=== PATIENT | female | born 1985 | race Caucasian/White ===

== ENCOUNTER 2019-01-21 17:00 | Emergency (ER) | payer MEDICAID ==
[~2019-01-21] VITALS: Ht 172.7 cm; Wt 68.0 kg
[~2019-01-21 17:00] MED LIST: ACEASPCAF; DOCU100; HYDACE5 PO; IBUP800; IBUP800 PO; KARIVA; MULVITMINE PO; NAPR500; NUVA RING; OXYACE5T; OXYACE5T PO; PENVK500 PO; PRENATAL TABLE1 EAC1 PO; PROACE100 PO; RXOXYACE PO; RXPROACE PO; SUMA25 PO
== END 2019-01-21 17:35 | disposition home or self-care (01) ==
LOC: ER 17:00
DX: S00.412A Abrasion of left ear, initial encounter (principal); W22.8XXA Striking against or struck by other objects, initial encounter
CPT/HCPCS: 99282

== ENCOUNTER 2019-07-13 15:07 | Emergency (ER) | payer OTHER ==
[~2019-07-13] VITALS: Ht 172.7 cm; Wt 63.5 kg
[2019-07-13 15:54] LABS: BASOPHILS ABSOLUTE AUTO 0.05 K/mm3 (0.00-0.23); BASOPHILS PERCENT AUTO 1 % (0-2); EOSINOPHILS ABSOLUTE AUTO 0.08 K/mm3 (0.00-0.68); EOSINOPHILS PERCENT AUTO 2 % (0-6); Hemoglobin 11.2 g/dL (11.5-16.0); IMMATURE GRAN ABSOLUTE AUTO 0.01 K/mm3 (0.00-0.10); IMMATURE GRAN PERCENT AUTO 0 % (0-1); LYMPHOCYTES ABSOLUTE AUTO 2.12 K/mm3 (0.84-5.20); LYMPHOCYTES PERCENT AUTO 40 % (21-46); MONOCYTES ABSOLUTE AUTO 0.41 K/mm3 (0.16-1.47); MONOCYTES PERCENT AUTO 8 % (4-13); Mean Corpuscular HGB 23.7 pg (26.0-34.0); Mean Corpuscular HGB Conc 31.1 g/dL (31.5-36.5); Mean Corpuscular Volume 76 fL (80-100); Mean Platelet Volume 8.5 fL (9.1-12.4); NEUTROPHILS ABSOLUTE AUTO 2.62 K/mm3 (1.96-9.15); NEUTROPHILS PERCENT AUTO 50 % (41-73); Platelet Count 299 K/mm3 (150-400); RDW Coefficient Variation 18.4 % (11.7-14.2); RDW Standard Deviation 50.4 fL (35.1-46.3); Red Blood Cell Count 4.72 M/mm3 (3.80-5.20); White Blood Cell Count 5.29 K/mm3 (4.00-11.30)
[2019-07-13 16:18] LABS: Alanine Aminotransfer (ALT/SGP 19 U/L (12-78); Albumin, Blood 3.4 g/dL (3.4-5.0); Albumin/Globulin Ratio 1.1 (0.8-1.8); Alk Phos 42 U/L (50-136); Anion Gap 1 mmol/L (6-16); Aspartate Aminotrans (AST/SGOT 22 U/L (12-37); Bilirubin, Total 0.8 mg/dL (0.1-1.0); Blood Urea Nitrogen 14 mg/dL (8-24); Bun/Creatinine Ratio 23.3 (12.0-20.0); CO2, Blood 28 mmol/L (21-32); Calcium, Blood 8.6 mg/dL (8.5-10.1); Chloride, Blood 112 mmol/L (98-108); Globulin, Blood 3.2 g/dL (2.2-4.0); Glomerular Filtration Rate >60 (60-); Glucose, Blood 94 mg/dL (70-99); Potassium, Blood 3.9 mmol/L (3.5-5.5); Sodium, Blood 141 mmol/L (136-145); Total Protein, Blood 6.6 g/dL (6.4-8.2)
[2019-07-13 16:45] LABS: Source, Urine Clean Catch
[2019-07-13 16:56] LABS: Bilirubin, Urine Neg (Neg); Blood, Urine Neg (Neg); Glucose Qualitative, Urine Neg (Neg); Ketones, Urine Neg (Neg); Leukocyte Esterase, Urine 1+ (Neg); Nitrite, Urine Pos (Neg); Protein, Urine 1+ (Neg); Urobilinogen, Urine 1+ (Normal)
[2019-07-13 17:15] LABS: Appearance, Urine Clear (Clear); Color, Urine Yellow (P-Yellow)
[2019-07-13 17:16] LABS: Bacteria Many /hpf; Mucus Mod ({null, 0-Heavy}); Red Blood Cells, Urine 0-2 /hpf (0-2); Squamous Epithelial Cells Mod /hpf (Few)
[2019-07-13] MEDS ORDERED: CEPH500 PO (17:51)
== END 2019-07-13 18:22 | disposition home or self-care (01) ==
LOC: ER 15:07
PROVIDERS: Physician Assistant
DX: N39.0 Urinary tract infection, site not specified (principal); Z88.8 Allergy status to other drugs, medicaments and biological substances; F17.210 Nicotine dependence, cigarettes, uncomplicated
CPT/HCPCS: 36415; 80053; 81001; 85025; 87077; 87086; 87186; 99283

== ENCOUNTER 2019-07-29 10:08 | Emergency (ER) | payer OTHER ==
[~2019-07-29] VITALS: Ht 170.2 cm; Wt 68.0 kg
[~2019-07-29 10:08] MED LIST changes: +CEPH500 PO
[2019-07-29 10:53] LABS: Source, Urine Clean Catch
[2019-07-29 10:56] LABS: Bilirubin, Urine Neg (Neg); Blood, Urine 1+ (Neg); Glucose Qualitative, Urine Neg (Neg); Ketones, Urine 1+ (Neg); Leukocyte Esterase, Urine 1+ (Neg); Nitrite, Urine Pos (Neg); Protein, Urine 1+ (Neg); Urobilinogen, Urine 2+ (Normal)
[2019-07-29 11:14] LABS: Appearance, Urine Hazy (Clear); Color, Urine Yellow (P-Yellow)
[2019-07-29 11:15] LABS: Bacteria Many /hpf; Squamous Epithelial Cells Few /hpf (Few)
[2019-07-29] MEDS ORDERED: CEFP200 PO (11:18)
[2019-07-29] MEDS ORDERED: TRIA15CR3 TOP (11:18)
[2019-07-29] MEDS ORDERED: Pyridium200 MG PO (11:18)
== END 2019-07-29 11:48 | disposition home or self-care (01) ==
LOC: ER 10:08
PROVIDERS: Physician Assistant
DX: N39.0 Urinary tract infection, site not specified (principal); L23.7 Allergic contact dermatitis due to plants, except food; F17.200 Nicotine dependence, unspecified, uncomplicated; Z88.1 Allergy status to other antibiotic agents
CPT/HCPCS: 81001; 87077; 87086; 87186; 96372; 99283-25; J3301

== ENCOUNTER 2019-10-22 23:06 | Emergency (ER) | payer OTHER ==
[~2019-10-22] VITALS: Ht 172.7 cm; Wt 68.0 kg
[~2019-10-22 23:06] MED LIST changes: +CEFP200 PO; +Pyridium200 MG PO; +TRIA15CR3 TOP
[2019-12-02] MEDS ORDERED: Vibramycin100 MG PO (21:46)
== END 2019-10-23 01:32 | disposition home or self-care (01) ==
LOC: ER 23:06
DX: B34.9 Viral infection, unspecified (principal); Z88.1 Allergy status to other antibiotic agents; F41.9 Anxiety disorder, unspecified; F17.200 Nicotine dependence, unspecified, uncomplicated
CPT/HCPCS: 99282; A9270-GY

== ENCOUNTER 2020-03-21 17:07 | Emergency (ER) | payer OTHER ==
[~2020-03-21] VITALS: Ht 170.2 cm; Wt 72.6 kg
[~2020-03-21 17:07] MED LIST changes: +Vibramycin100 MG PO
[2020-03-21] MEDS ORDERED: CEPH500 PO (17:44)
[2020-03-21] MEDS ORDERED: Bactrim Ds Tab1 EACH PO (17:44)
== END 2020-03-21 18:32 | disposition home or self-care (01) ==
LOC: ER 17:07
DX: L03.115 Cellulitis of right lower limb (principal); F17.200 Nicotine dependence, unspecified, uncomplicated; Z88.8 Allergy status to other drugs, medicaments and biological substances
CPT/HCPCS: 99283; A9270-GY

== ENCOUNTER 2020-07-30 10:59 | Emergency (ER) | payer OTHER ==
[~2020-07-30 10:59] MED LIST changes: +Bactrim Ds Tab1 EACH PO
== END 2020-07-30 12:53 | disposition left against medical advice (07) ==
LOC: ER 10:59
DX: Z53.21 Procedure and treatment not carried out due to patient leaving prior to being seen by health care provider (principal)

== ENCOUNTER 2022-08-25 14:35 | Inpatient (IN) | payer OTHER ==
[~2022-08-25] VITALS: Ht 175.3 cm; Wt 112.5 kg
[2022-08-25 15:15] LABS: BASOPHILS ABSOLUTE AUTO 0.03 K/mm3 (0.00-0.23); BASOPHILS PERCENT AUTO 0 % (0-2); EOSINOPHILS ABSOLUTE AUTO 0.05 K/mm3 (0.00-0.68); EOSINOPHILS PERCENT AUTO 1 % (0-6); IMMATURE GRAN ABSOLUTE AUTO 0.04 K/mm3 (0.00-0.10); IMMATURE GRAN PERCENT AUTO 1 % (0-1); LYMPHOCYTES ABSOLUTE AUTO 2.18 K/mm3 (0.84-5.20); LYMPHOCYTES PERCENT AUTO 26 % (21-46); MONOCYTES ABSOLUTE AUTO 0.39 K/mm3 (0.16-1.47); MONOCYTES PERCENT AUTO 5 % (4-13); Mean Platelet Volume 8.5 fL (9.1-12.4); NEUTROPHILS ABSOLUTE AUTO 5.87 K/mm3 (1.96-9.15); NEUTROPHILS PERCENT AUTO 68 % (41-73); Platelet Count 311 K/mm3 (150-400); White Blood Cell Count 8.56 K/mm3 (4.00-11.30)
[2022-08-25 15:17] LABS: Hematocrit 34.2 % (33.0-51.0); Mean Corpuscular HGB 23.6 pg (26.0-34.0); Mean Corpuscular HGB Conc 32.2 g/dL (31.5-36.5); Mean Corpuscular Volume 73 fL (80-100); Red Blood Cell Count 4.67 M/mm3 (3.80-5.20)
[2022-08-25] MEDS ORDERED: PRENATAL TABLE1 EAC2 PO (15:24)
[2022-08-25 17:44] LABS: U Amphetamine Screen Not Detected; U Barbituate Screen Not Detected; U Benzodiazapine Screen Not Detected; U Buprenorphine Screen Not Detected; U Cannabinoids Screen DETECTED; U Cocaine Screen Not Detected; U Methadone Screen Not Detected; U Methamphetamine Screen Not Detected; U Opiates Screen Not Detected; U Oxycodone Screen Not Detected; U Phencyclidine Screen Not Detected; U Propoxyphene Screen Not Detected
--- NOTE | 2022-08-26 14:40 | NUR ---
Pt up in br, doing makeup. Denies needs at this time. Reports has not voided again yet since initial shower and post void. Pt encouraged to try to void and educated about safe amount of bleeding and what to report. Denies other needs at this time.
--- NOTE | 2022-08-26 16:01 | NUR ---
Spiritual care visit attempted. Upon receiving a referral for spiritual care, I visit [facility]. Staff checked with pt to see her level of availability and interest. Pt declined visit.
[2022-08-27 06:17] LABS: Hemoglobin 9.9 g/dL (11.5-16.0); Mean Platelet Volume 8.5 fL (9.1-12.4); Platelet Count 274 K/mm3 (150-400)
[2022-08-27 06:24] LABS: Hematocrit 31.8 % (33.0-51.0); Mean Corpuscular HGB 23.7 pg (26.0-34.0); Mean Corpuscular HGB Conc 31.1 g/dL (31.5-36.5); Mean Corpuscular Volume 76 fL (80-100); Red Blood Cell Count 4.18 M/mm3 (3.80-5.20)
== END 2022-08-27 11:20 | disposition home or self-care (01) | DRG 807 ==
LOC: OBS 14:35 → BC 14:36 → OBS 14:41 → BC 14:42
PROVIDERS: ADMIT Nurse Practitioner Obstetrics & Gynecology
PROC: 10E0XZZ Delivery of Products of Conception, External Approach (ICD-10-PCS; principal; 2022-08-26)
PROC: 3E0R3BZ Introduction of Anesthetic Agent into Spinal Canal, Percutaneous Approach (ICD-10-PCS; 2022-08-26)
PROC: 00HU33Z Insertion of Infusion Device into Spinal Canal, Percutaneous Approach (ICD-10-PCS; 2022-08-26)
DX: O42.02 Full-term premature rupture of membranes, onset of labor within 24 hours of rupture (principal); Z37.0 Single live birth; Z3A.37 37 weeks gestation of pregnancy; O99.02 Anemia complicating childbirth; D64.9 Anemia, unspecified; O99.344 Other mental disorders complicating childbirth; F32.A Depression, unspecified; O99.334 Smoking (tobacco) complicating childbirth; F17.210 Nicotine dependence, cigarettes, uncomplicated; Z91.040 Latex allergy status; Z88.8 Allergy status to other drugs, medicaments and biological substances; O76 Abnormality in fetal heart rate and rhythm complicating labor and delivery; O26.53 Maternal hypotension syndrome, third trimester
CPT/HCPCS: 36415; 85025; 85027; 86850; 86900; 86901; 86923; A9270; J0290; J1885; J2210; J2405; J2590; J3010; J7120

== ENCOUNTER 2023-01-08 09:29 | Day surgery (SDC) | payer OTHER ==
[~2023-01-08] VITALS: Ht 175.3 cm; Wt 115.9 kg
[~2023-01-08 09:29] MED LIST changes: +PRENATAL TABLE1 EAC2 PO
--- NOTE | 2023-01-08 11:55 | NUR ---
01/08/23 1155 Neal Hutchinson ROPIVACAINE 0.5% 10 MLS MIXED & VERIFIED W/ EPI 0.05ML (1MG/ML) PER ORDER TO MAKE ROPIVACAINE 0.5% 1:200,000 FOR INJECTION AT OPSITE BY DR NICOLAS. ABDOMINAL AREA PREPPED W/ DURAPREP BY [employer]. NAOMY AREA & THIGHS PREPPED W/ BETADINE SOLUTION BY PATIENCE.
--- NOTE | 2023-01-08 12:44 | NUR ---
01/08/23 1244 Heidi Mortensen PT TALKING AND LAUGHING AND IS COMFORTABLE AT PAIN SCALE 5
--- NOTE | 2023-01-08 13:02 | NUR ---
01/08/23 1302 Heidi Mortensen PT IN RECLINER RELAXING LAUGHING AND SMILING. PT STATES PAIN IS CRAMPING BUT IS TOLERABLE.
== END 2023-01-08 13:14 | disposition home or self-care (01) ==
LOC: ORSCSDS 09:29
PROVIDERS: Obstetrics & Gynecology
PROC: 0UT74ZZ Resection of Bilateral Fallopian Tubes, Percutaneous Endoscopic Approach (ICD-10-PCS; principal; 2023-01-08 10:45)
DX: Z30.2 Encounter for sterilization (principal); E66.9 Obesity, unspecified; Z68.37 Body mass index [BMI] 37.0-37.9, adult; F17.210 Nicotine dependence, cigarettes, uncomplicated
CPT/HCPCS: 88302; J0171; J0690; J1100; J1885; J2250; J2405; J2704; J2795; J3010; J7120

== ENCOUNTER → 2024-11-17 | Outpatient (CLI) | payer OTHER | LOC: LAB SHORT 16:00 → LAB 16:00 | DX: L08.9 Local infection of the skin and subcutaneous tissue, unspecified (principal) | CPT/HCPCS: 87070; 87075; 87077; 87147; 87186; 87205 ==

== ENCOUNTER 2025-03-19 17:18 | Emergency (ER) | payer OTHER ==
[~2025-03-19] VITALS: Ht 172.7 cm; Wt 83.9 kg
[2025-03-19 17:31] VITALS: BP 120/85
== END 2025-03-19 17:48 | disposition home or self-care (01) ==
LOC: ER 17:18
DX: M25.571 Pain in right ankle and joints of right foot (principal); M25.471 Effusion, right ankle; Z53.29 Procedure and treatment not carried out because of patient's decision for other reasons

== ENCOUNTER → 2025-03-24 | Outpatient (CLI) | payer OTHER ==
[2025-03-24 18:59] LABS: BASOPHILS ABSOLUTE AUTO 0.07 K/mm3 (0.00-0.23); BASOPHILS PERCENT AUTO 2 % (0-2); EOSINOPHILS ABSOLUTE AUTO 0.06 K/mm3 (0.00-0.68); EOSINOPHILS PERCENT AUTO 1 % (0-6); Hematocrit 33.7 % (33.0-51.0); Hemoglobin 10.8 g/dL (11.5-16.0); IMMATURE GRAN PERCENT AUTO 0 % (0-1); LYMPHOCYTES ABSOLUTE AUTO 2.47 K/mm3 (0.84-5.20); LYMPHOCYTES PERCENT AUTO 54 % (21-46); MONOCYTES ABSOLUTE AUTO 0.27 K/mm3 (0.16-1.47); MONOCYTES PERCENT AUTO 6 % (4-13); Mean Corpuscular HGB 25.7 pg (26.0-34.0); Mean Corpuscular Volume 80 fL (80-100); NEUTROPHILS ABSOLUTE AUTO 1.75 K/mm3 (1.96-9.15); NEUTROPHILS PERCENT AUTO 38 % (41-73); Platelet Count 359 K/mm3 (150-400); RDW Coefficient Variation 14.6 % (11.7-14.2); RDW Standard Deviation 42.5 fL (35.1-46.3); Red Blood Cell Count 4.21 M/mm3 (3.80-5.20); White Blood Cell Count 4.62 K/mm3 (4.00-11.30)
[2025-03-24 19:05] LABS: Creatinine, Blood 0.62 mg/dL (0.40-1.00); Potassium, Blood 4.1 mmol/L (3.5-5.5)
== END ==
LOC: LAB SHORT 18:56 → LAB 18:56
PROVIDERS: Physician Assistant Medical
DX: R60.0 Localized edema (principal)
CPT/HCPCS: 80048; 85025; 85379